=== PATIENT | female | born 1965 | race Caucasian/White ===

== ENCOUNTER 2017-01-21 09:38 | Day surgery (SDC) | payer OTHER ==
[2017-01-14 16:31] VITALS: BMI 30.3
[~2017-01-21 09:38] MED LIST: oxyCODONE HCL 10 MG SUSTAINED ACTING TABLET PO ONE
[2017-01-21] MEDS ORDERED: DEXAMETHASONE SOD PHOSPHATE/PF 10 MG/ML SDV ONE (11:12)
[2017-01-21] MEDS ORDERED: MIDAZOLAM HCL 2 MG/2 ML SINGLE DOSE VIAL ONE ×3 (11:13→12:32)
[2017-01-21] MEDS ORDERED: BUPIVACAINE HCL/PF (5 MG/ML) 30 ML VIAL IJ ONE (11:13)
[2017-01-21] MEDS ORDERED: BUPIVACAINE HCL/PF 2.5 MG/ML - 30 ML VIAL IJ ONE (11:31)
[2017-01-21] MEDS ORDERED: methylPREDNISolone ACET (DEPO) 40 MG/1 ML VIAL ONE (11:31)
[2017-01-21] MEDS ORDERED: THROMBIN (BOVINE) 5,000 UNIT VIAL TP ONE ×2 (11:32→11:44)
[2017-01-21] MEDS ORDERED: LIDOCAINE 1%/EPI 1:100000 (20 ML MULTI DOSE VIAL) ONE (11:32)
--- NOTE | 2017-01-21 11:37 | HP ---
History & Physical Update - History History: No Change - Physical Physical: No Change - Assessment Assessment: No Change - Plan Plan: No Change
[2017-01-21] MEDS ORDERED: ONDANSETRON 4 MG/2 ML VIAL ONE (12:10)
[2017-01-21] MEDS ORDERED: DEXAMETHASONE SOD PHOSPHATE 4 MG/1 ML VIAL ONE (12:10)
[2017-01-21] MEDS ORDERED: ceFAZolin SODIUM 1 GM VIAL ONE (12:10)
[2017-01-21] MEDS ORDERED: oxyCODONE HCL 5 MG TABLET PO PRN (13:25)
[2017-01-21] MEDS ORDERED: ONDANSETRON 4 MG/2 ML VIAL IVPUSH PRN (13:25)
[2017-01-21] MEDS ORDERED: LACTATED RINGERS SOLUTION 1,000 ML IV SCH (13:30)
--- NOTE | 2017-01-21 14:01 | OP ---
Operative Note - Note: Operative Date: 01/21/17 Pre-Operative Diagnosis: spinal stenosis Operation: s/p L3-L4 laminectomy Surgeon: Nigel Pereira Butting Saw Operator: Jimena Gomez Anesthesiologist/[employer] SALESPERSON: Rhea Lizama Anesthesia: Spinal Estimated Blood Loss (mls): 20 Fluid Volume Replaced (mls): 900 Operative Report Dictated: Yes
--- NOTE | 2017-01-21 14:02 | SURG ---
Surgery Roving Technician Note Roving Technician: Jimena Gomez PA-C Date of Service: 01/21/17 Diagnosis: spinal stenosis Procedure: laminectomy of L3-L4 I was present for the entirety of the operative procedure. For further detail, please refer to operative report. Visit type - Case Type Case Type: Scheduled Admission - Emergency Emergency Visit: No - New patient This patient is new to me today: Yes Date on this admission: 01/21/17
[2017-01-21] MEDS ORDERED: ONDANSETRON 4 MG/2 ML VIAL IVPUSH ONE (14:16)
[2017-01-21 18:20] VITALS: BP 120/72; PULSE 72; TEMP 98
--- NOTE | 2017-01-22 07:55 | OP ---
DATE OF OPERATION: 01/21/2017 PREOPERATIVE DIAGNOSIS: Spinal stenosis, L3-L4. POSTOPERATIVE DIAGNOSIS: Spinal stenosis, L3-L4. PROCEDURE PERFORMED: Laminectomy at L3-L4. SURGEON: Nigel Pereira MD CMO: KRISTIE Bhagat ESTIMATED BLOOD LOSS: 50 mL. IV FLUID: Per anesthesia. COMPLICATIONS: None. DISPOSITION: Patient brought to the PACU in stable condition. INDICATIONS FOR SURGERY: The patient is a 51-year-old female who has been suffering from pain from her back down her leg. X-rays and MRI were completed, which noted that she had spinal stenosis at L3-L4. She had gone through an exhaustive course of treatment for this, which included medications, physical therapy, as well as injections. Unfortunately, her pain continued to persist despite all this. At this point, risks, benefits, and alternatives were discussed, and the patient consented to surgery. OPERATIVE NOTE: Patient was brought to the operating room by the Anesthesia staff. After appropriate patient identification was performed, spinal anesthesia was given. She was placed prone onto the Max frame with all areas of bony prominences well padded. At this time, 2 needles were placed into her back to héctor off the L3-L4 segments. An x-ray was taken to confirm this was correct. The needle was removed, and 10 mL of lidocaine with epinephrine was injected into her back at this time. Her back was prepped and draped in a sterile manner. At this point, a time-out was completed. An incision was made from the top of L3 down to the bottom of L4. Dissection was carried down to the fascia. The fascia was split open at this time. Appropriate retractor was then placed in. A spinal needle was placed into the L3 lamina to héctor off the L3-L4 level. An x-ray was taken to confirm this was correct. The needle was removed, and the microscope was brought in. At this point, the interspinous ligament at L3-L4 was removed. Portion of the L3 lamina and L4 lamina were removed. The segment was identified and removed. A complete decompression was performed such that by the end of the procedure, the L4 nerve root appeared to be well decompressed. All bleeding was well controlled at this time. Steroids were placed over the nerve root. Floseal was placed over that. The fascia was closed with a No. 1 Vicryl suture. The subcutaneous tissues were closed with 2-0 Vicryl suture. Skin was closed with 3-0 Monocryl suture. Dermabond was applied. Steri-Strips were applied, and sterile dressings applied. Patient was placed supine on the OR bed and brought to the PACU in stable condition. Natalie MONCADA/[id number]
== END 2017-01-21 18:21 | disposition home or self-care (01) ==
LOC: FASU 09:38
PROVIDERS: ATTEND Orthopaedic Surgery Orthopaedic Surgery of the Spine
PROC: 01NB0ZZ Release Lumbar Nerve, Open Approach (ICD-10-PCS; principal; 2017-01-21 12:27)
DX: M48.061 Spinal stenosis, lumbar region without neurogenic claudication (principal)
CPT/HCPCS: 72100-TC; 76000-TC; 84703; 94760